=== PATIENT | female | born 1990 | race Caucasian/White ===

== ENCOUNTER 2017-09-06 19:32 | Emergency (ER) | payer OTHER ==
--- NOTE | 2017-09-06 19:59 | ED ---
Throat Pain/Nasal Congestion - HPI Summary HPI Summary: 27 female presents to ED with complaints of left ear pain that began 4 days ago and has not improved. Patient states she has tried ibuprofen, nyquil and mucinex without relief. Patient states it radiates into her throat and is worse with swallowing. Denies any sore throat. Admits to having upper respiratory like symptoms, coughing, nasal congestion, fever/chills all in which have been improving. Denies any drainage from ear or loss of hearing. No other complaints. No PMHx. No other medications. - History of Current Complaint Chief Complaint: EDEarPain Hx Obtained From: Patient Onset/Duration: Sudden Onset, Lasting Days, Still Present Severity: Moderate Cough: Nonproductive - Epiglottits Risk Factors Epiglottis Risk Factors: Negative - Allergies/Home Medications Allergies/Adverse Reactions: Allergies Allergy/AdvReac Type Severity Reaction Status Date / Time robotussin Allergy Rash Uncoded 09/06/17 19:38 PMH/Surg Hx/FS Hx/Imm Hx Endocrine/Hematology History: Denies: Hx Anticoagulant Therapy, Hx Diabetes Cardiovascular History: Denies: Hx Hypertension Respiratory History: Denies: Hx Asthma - Surgical History Surgery Procedure, Year, and Place: n/a - Immunization History Immunizations Up to Date: Yes Infectious Disease History: No Infectious Disease History: Denies: Traveled Outside the [place] in Last 30 Days - Family History Known Family History: Positive: None - Social History Alcohol Use: Occasionally Substance Use Type: Reports: None Smoking Status (MU): Never Smoked Tobacco Review of Systems Constitutional: Negative Positive: Ear Ache - left , Nasal Discharge Cardiovascular: Negative Positive: Cough Gastrointestinal: Negative Neurological: Negative All Other Systems Reviewed And Are Negative: Yes Physical Exam Triage Information Reviewed: Yes Vital Signs On Initial Exam: Initial Vitals Temp Pulse Resp BP Pulse Ox 98.1 F 86 16 145/77 100 09/06/17 19:35 09/06/17 19:35 09/06/17 19:35 09/06/17 19:35 09/06/17 19:35 122/78 BP improved Vital Signs Reviewed: Yes Appearance: Positive: Well-Appearing, No Pain Distress, Well-Nourished Skin: Positive: Warm, Skin Color Reflects Adequate Perfusion, Dry. Negative: Cold, Cyanosis @, Diaphoretic, Pale, Erythema @ Head/Face: Positive: Normal Head/Face Inspection Eyes: Positive: Conjunctiva Clear ENT: Positive: Hearing grossly normal, Pharynx normal, TMs normal - EAC normal bilaterally, Uvula midline - airway patent. Negative: Nasal congestion, Nasal drainage, TM bulging, TM dull, TM red, Tonsillar swelling, Tonsillar exudate Dental: Negative: Cervical Lymphadenopathy Neck: Positive: Supple, Nontender, No Lymphadenopathy Respiratory/Lung Sounds: Positive: Clear to Auscultation, Breath Sounds Present. Negative: Rales, Rhonchi, Wheezes Cardiovascular: Positive: Normal, RRR, Pulses are Symmetrical in both Upper and Lower Extremities. Negative: Murmur, Rub Musculoskeletal: Positive: Normal, Strength/ROM Intact Neurological: Positive: Normal, Sensory/Motor Intact, Alert, Oriented to Person Place, Time Diagnostics - Vital Signs Vital Signs Temp Pulse Resp BP Pulse Ox 09/06/17 19:35 98.1 F 86 16 145/77 100 - Laboratory Lab Statement: Any lab studies that have been ordered have been reviewed, and results considered in the medical decision making process. EENT Course/Dx - Course Course Of Treatment: no abnormal findings on PE, some slight serous effusion behind TM. possibly suffering from serous effusion fluid build up. recommended claritin/zyrtec. follow up with pcp. aware of worsening signs and symptoms to return for. no other concerns at this time. - Differential Diagnoses Differential Diagnoses: Otitis Externa, Otitis Media, URI/Bronchitis, Other - serous effusion - Diagnoses Provider Diagnoses: Serous otitis media, Ear pain, left Discharge - Discharge Plan Condition: Stable Disposition: HOME Patient Education Materials: Earache (ED), Serous Otitis Media (ED) Referrals: [facility] [place] [facility]YSICIAN REFERRAL [Outside] Additional Instructions: Continue taking claritin or zyrtec to help with ear ache and fluid build up. Increase fluid intake and get plenty of rest. Any new or worsening symptoms please seek medical attention. Follow up with PCP to ensure improvement.
[2017-09-06 21:47] VITALS: BP 122/78
[2017-09-07] MEDS ORDERED: Cetirizine* 10 MG TAB PO ONE (21:29)
== END 2017-09-06 21:45 | disposition home or self-care (01) ==
LOC: ED 19:32
DX: H65.92 Unspecified nonsuppurative otitis media, left ear (principal); R09.81 Nasal congestion; R05 Cough
CPT/HCPCS: 99282

== ENCOUNTER → 2019-08-05 11:51 | Day surgery (SDC) | payer BC ==
[~2019-08-05 11:51] MED LIST: Buffered Lidocaine 1% SYRIN* 1 ML/SYRINGE INTRADERM ONE; Bupivacaine 0.25% SDV PF* 10 ML VIAL INJ ONE; DiMENhydriNATE IV* 50 MG/ML VIAL IV PUSH PRN; DiMENhydriNATE IV* 50 MG/ML VIAL ONE; EPHEDrine (Pressors)* 50 MG/ML VIAL ONE; Famotidine IV* 10 MG/ML 2 ML (20 mg) IV ONE; Famotidine IV* 10 MG/ML 2 ML (20 mg) ONE; HYDROmorphone INJ1* 1 MG/ML SYRINGE IV PRN; HYDROmorphone INJ1* 1 MG/ML SYRINGE ONE; KETAMINE HCL* 50 MG/ML 10 ML VIAL ONE; Ketorolac INJ* 30 MG/ML 1 ML VIAL ONE; Lactated Ringers 1000 ML Bag* 1,000 ML IV SCH; Lidocaine 2% PF * 5 ML VIAL ONE; Midazolam* 1 MG/ML 5 ML VIAL (5 MG) ONE; Naloxone* 0.4 MG/ML 1 ML VIAL IV PRN; Ondansetron ODT TAB* 4 MG ONE; Ondansetron ODT TAB* 4 MG PO ONE; PROCHLORPERAZINE INJ 5 MG/ML 2 ML VIAL IV PRN; PROCHLORPERAZINE INJ 5 MG/ML 2 ML VIAL ONE; Propofol* 10 MG/ML 20 ML BTL ONE; Scopolamine 1.5 mg* PATCH TRANSDERM ONE; Scopolamine PATCH Remove* 1 NOTE MISC PATCH OFF ONE; Sugammadex * 200 MG/2 ML VIAL IV PUSH ONE; fentaNYL* 50 MCG/ML 2 ML VIAL (100 MCG VIAL) IV PRN; fentaNYL* 50 MCG/ML 2 ML VIAL (100 MCG VIAL) ONE; oxyCODONE TAB* 5 MG TAB PO PRN
[2019-08-05 17:34] VITALS: BP 120/82
--- NOTE | 2019-08-05 22:31 | OP ---
CC: [facility] * DATE OF OPERATION: 08/05/19 - [facility] DATE OF : 89 SURGEON: Tavia Madison MD REVENUE RESEARCH ANALYST: Maynor Gutierrez MD ANESTHESIOLOGIST: Dr. Garrett. ANESTHESIA: General endotracheal anesthesia. PRE-OP DIAGNOSIS: Right complex ovarian cyst. POST-OP DIAGNOSIS: Right complex ovarian cyst. OPERATIVE PROCEDURE: Laparoscopic right oophorectomy. ESTIMATED BLOOD LOSS: Less than 50 cc. URINE OUTPUT: 600 cc of clear urine. FINDINGS: Midline anteverted uterus. Normal-appearing left ovary and normal- appearing left fallopian tube. Normal-appearing right fallopian tube. Large, approximately 6 cm, right ovary filled with cyst contents. Thickened area adjacent to fundus on the right that appears to be ampullary portion of the right fallopian tube. It is less likely that is a duplication of the uterus on the right. Normal appendix. COMPLICATIONS: None. COUNTS: Sponge, lap, and needle count were correct x2. CONDITION: The patient was brought to recovery room awake and in stable condition. DESCRIPTION OF PROCEDURE: The patient was brought to the operating room. When general anesthesia was found to be adequate, a Pires catheter was placed under sterile conditions. The patient was prepped and draped in the usual sterile fashion in the dorsal supine position. Time-out was performed. A 10-mm skin incision was made in the infraumbilical fold after lidocaine was instilled. The fascia was identified and incised. The fascia was tagged with 0 Vicryl on UR-6 needles. The 10-mm trocar and sleeve were placed in the infraumbilical incisions. A 5-mm incision was made 2 cm above the symphysis pubis after lidocaine was instilled and the 5-mm trocar and sleeve were placed under direct visualization. A 5-mm skin incision was made in the right lower quadrant after lidocaine was instilled. The 5-mm trocar and sleeve were placed under direct visualization. The abdomen and pelvis were examined with the above findings noted. The right ovary was felt to be cystic throughout. An attempt was made to perform a cystectomy as that was the patient's preference. Cyst contents started leaking thick viscous fluid. This was suctioned. No normal area of right ovary could be seen or felt and the decision was made to proceed with right oophorectomy so as not to leave dermoid tissue. This was done using the LigaSure coming across the infundibulopelvic ligament and incising just under the ovary. The ovary was placed in an endobag and removed through the 10mm incision under visualization. The right fallopian tube appeared normal and therefore was not removed. There was a thickening adjacent to the fundus on the right that appeared to represent an area where there could have been intermittent torsion of the right fallopian tube and otherwise the uterus appeared normal. The left ovary and fallopian tube appeared normal and the appendix appeared normal. Excellent hemostasis was noted at the site of the right oophorectomy. Copious irrigation through the abdomen and pelvis was then done and the irrigation fluid was then suctioned and once again hemostasis was assured. No cyst contents other than the thick fluid spilled and none of the cyst fluid was seen after copious irrigation. The 10-mm trocar and sleeve were removed with the laparoscope in place. The 5-mm trocars were removed. The infraumbilical fascia was closed using 0 Vicryl. No defect was palpated. The skin was closed with 4-0 Monocryl and glue was applied. The two 5-mm incision sites were closed with 4-0 Monocryl. Glue was applied. The Pires was removed. The patient tolerated the procedure well. Sponge, lap, and needle count were correct x2, and the patient was brought to the recovery room awake and in stable condition. [id number]/[facility] #: [id number] PAOLO
== END | disposition home or self-care (01) ==
LOC: OR 11:51
PROVIDERS: ATTEND Obstetrics & Gynecology
DX: D27.0 Benign neoplasm of right ovary (principal); Z88.0 Allergy status to penicillin; Z88.8 Allergy status to other drugs, medicaments and biological substances
CPT/HCPCS: 81025; 88305; A9270-GY; J0780; J1170; J1240; J1885; J2250; J2704; J3010; J3490

== ENCOUNTER 2021-02-26 10:18 | Inpatient (IN) ==
[2021-02-26] MEDS ORDERED: Buffered Lidocaine 1% SYRIN 1 ml INTRADERM ONE (11:57)
[2021-02-26] MEDS ORDERED: Lactated Ringers 1000 ml BAG 1,000 ML IV ONE (11:57)
[2021-02-26] MEDS ORDERED: Lactated Ringers 1000 ml BAG 1,000 ML IV SCH (12:00)
[2021-02-26] MEDS ORDERED: Promethazine INJ(RESTRICTED) 25 MG/ML 1 ml VIAL IV PRN (12:11)
[2021-02-26] MEDS ORDERED: Morphine 10 MG/ML VIAL (1 ml) IV PRN (12:11)
[2021-02-26 13:17] LABS: ABS Eosinophils 0.1 10^3/ul (0-0.6); ABS Lymphocytes 1.6 10^3/ul (1.0-4.8); ABS Monocytes 0.6 10^3/ul (0-0.8); ABS Neutrophils 6.4 10^3/ul (1.5-7.7); Eosinophil % 1.1 %; Hematocrit 40 % (35-47); Hemoglobin 13.6 g/dL (12.0-16.0); Lymphocyte % 18.1 %; Mean Corpuscular HGB Conc 34 g/dL (31-36); Mean Corpuscular Hemoglobin 30 pg (27-31); Mean Corpuscular Volume 88 fL (80-97); Mean Platelet Volume 10.1 fL (7.4-10.4); Nucleated Red Blood Cells % 0.1; Platelet Count 199 10^3/uL (150-450); Red Blood Count 4.51 10^6 /uL (3.70-4.87); Red Cell Distribution Width 15 % (10-15); White Blood Count 8.7 10^3/uL (3.5-10.8)
[2021-02-26] MEDS: Vancomycin 1,000 MG in NS 0.9% 250 ml 250 ML IVPB SCH (13:35)
[2021-02-26 13:43] LABS: Urine Benzodiazepine Screen None Detected (None Detect); Urine Cannabinoids Screen None Detected (None Detect); Urine Opiates Screen None Detected (None Detect)
[2021-02-27] MEDS ORDERED: Oxytocin in LR 20 UNITS/1,000 ML BAG IVPB ONE (00:59)
[2021-02-27] MEDS ORDERED: Glycerin ADULT 2.4 gm SUPP PR PRN (02:12)
[2021-02-27] MEDS ORDERED: Dibucaine 1% OINT 28.35 GM TUBE PR PRN (02:12)
[2021-02-27] MEDS ORDERED: Witch Hazel PAD JAR TOPICAL PRN (02:12)
[2021-02-27] MEDS ORDERED: Oxytocin in LR 20 UNITS/1,000 ML BAG IVPB SCH (03:00)
[2021-02-27] MEDS: Vancomycin 1,000 MG in NS 0.9% 250 ml 250 ML IVPB SCH (03:05)
[2021-02-27] MEDS ORDERED: Lidocaine 1% VIAL 10 MG/ML VIAL ONE (06:22)
[2021-02-28 09:03] LABS: ABS Eosinophils 0.2 10^3/ul (0-0.6); ABS Lymphocytes 2.1 10^3/ul (1.0-4.8); ABS Monocytes 0.6 10^3/ul (0-0.8); ABS Neutrophils 7.7 10^3/ul (1.5-7.7); Eosinophil % 1.7 %; Hematocrit 31 % (35-47); Hemoglobin 10.6 g/dL (12.0-16.0); Lymphocyte % 19.7 %; Mean Corpuscular HGB Conc 34 g/dL (31-36); Mean Corpuscular Hemoglobin 30 pg (27-31); Mean Corpuscular Volume 88 fL (80-97); Mean Platelet Volume 9.3 fL (7.4-10.4); Platelet Count 153 10^3/uL (150-450); Red Blood Count 3.52 10^6 /uL (3.70-4.87); Red Cell Distribution Width 15 % (10-15); White Blood Count 10.5 10^3/uL (3.5-10.8)
[2021-03-01 08:43] VITALS: BP 109/63
== END 2021-03-01 11:35 | disposition home or self-care (01) | DRG 807 ==
LOC: MCHOBOUT 10:18 → MCHOB 11:55
PROVIDERS: ADMIT Midwife; ATTEND Midwife